=== PATIENT | female | born 1970 | race Caucasian/White ===

== ENCOUNTER 2017-05-23 16:11 | Inpatient (IN) | payer MEDICAID ==
[~2017-05-23] VITALS: Ht 175.3 cm; Wt 60.3 kg
--- NOTE | 2017-05-23 16:40 | NUR ---
MS RN NOTES ADMITTED PATIENT FROM [facility], DX SEPSIS/CELLULITIS, DR. KAMARA, AO X 3, ON RA, NOT IN ANY DISTRESS, RESPIRATION UNLABORED, C/O 5/10 PAIN TO LEFT THIGH, RT FA G 20 IVHL FLUSHES WELL SITE CLEAR. SEE NURSING FLOWSHEET FOR SKIN ISSUES. PHOTOS TAKEN. REGULAR DIET, BEDREST FOR NOW. UNIT ORIENTATION DONE AND USE OF CALL LIGHT. BED LOW LOCKED. WILL CONT TO MONITOR.
[2017-05-23] MEDS ORDERED: VANC1VIA2 IV (16:43)
[2017-05-23] MEDS ORDERED: MAGNESIUM HYDROXIDE 30 ML UDC PO PRN (17:00)
[2017-05-23] MEDS ORDERED: ACETAMINOPHEN 325 MG TABLET PO PRN (17:00)
[2017-05-23] MEDS ORDERED: Z GUARD REMEDY 2 OZ OINT TP PRN (17:00)
[2017-05-23] MEDS ORDERED: ONDANSETRON HCL/PF 4 MG/2 ML VIAL IVP PRN (17:00)
[2017-05-23] MEDS ORDERED: MORPHINE SULFATE INJ 2 MG/ML DISP.SYRIN IV PRN (17:00)
[2017-05-23] MEDS ORDERED: ZOLPIDEM TARTRATE 5 MG TABLET PO PRN (17:00)
[2017-05-23] MEDS ORDERED: MAG HYDROX/AL HYDROX/SIMETH 30 ML UDC PO PRN (17:00)
[2017-05-23] MEDS: IV NS 0.9% 1,000 ML IV PRN (17:56)
[2017-05-23] MEDS: MORPHINE SULFATE INJ 10 MG/ML DISP.SYRIN IV PRN (18:04)
[2017-05-23] MEDS: CEFTRIAXONE 1 G in IV D5W 50 ML IV SCH (18:06)
[2017-05-23 18:33] LABS: CALCIUM, SERUM 9.4 mg/dL (8.5-10.1); CREATININE 0.4 mg/dL (0.6-1.3); POTASSIUM 4.3 mmol/L (3.5-5.1)
[2017-05-23] MEDS ORDERED: FEE PK DOSING 1 MIN EA MC ONE (18:44)
--- NOTE | 2017-05-23 18:52 | NUR ---
MS RN NOTES WOUND SPECIMEN COLLECTED AND SENT TO LAB. DUE MEDS GIVEN. ALL NEEDS MET. WILL ENDORSE TO NEXT SHIFT FOR GORGE.
--- NOTE | 2017-05-23 19:00 | NUR ---
MS RN OPENING NOTES RECEIVE PT IN BED, PT A/O X 2-3, PT NO ACUTE DISTRESS NOTED. TOLERATING ROOM AIR 98% HEAD OF BED ELEVATED FOR BETTER LUNG EXPANSION AND GOOD CIRCULATION. BREATHING EVEN AND UNLABORED, SAFETY MEASURES IN PLACE, BED LOCKED AND IN LOWEST POSITION, CALL LIGHT IN REACH. WILL CONTINUE TO MONITOR.
[2017-05-23 19:59] VITALS: BP 128/71
[2017-05-23 20:00] VITALS: BP 128/71
--- NOTE | 2017-05-23 21:07 | NUR ---
PLACED A CALL TO HOSPITALIST SPOKE TO AUDIO VISUAL DIRECTOR AND RELAYED PATIENT NEEDS MIDLINE INSERTION, PER DR. FINLEY TO INSERT MIDLINE NOTED AND CARRIED OUT.
[2017-05-23] MEDS: VANCOMYCIN 0.75 GM in IV D5W 250 ML IV SCH (21:18)
[2017-05-24] MEDS: MORPHINE SULFATE INJ 10 MG/ML DISP.SYRIN IV PRN ×6 (00:49→22:10)
[2017-05-24] MEDS: VANCOMYCIN 0.75 GM in IV D5W 250 ML IV SCH ×3 (04:14→21:17)
[2017-05-24 05:18] VITALS: BP 135/81
--- NOTE | 2017-05-24 06:38 | NUR ---
MS RN CLOSING NOTES ASLEEP IN BED, COMFORTABLY . EASILY AWAKEN, HEAD OF BED ELEVATED FOR BETTER LUNG EXPANSION AND GOOD CIRCULATION, TOLERATING ROOM AIR 02 SAT 100% IN STABLE CONDITION, NOT IN RESPIRATORY DISTRESS, RESPIRATIONS EVEN AND UNLABORED, GOOD SKIN CARE PROVIDED, KEPT CLEAN AND DRY AND COMFORTABLE, AFEBRILE, NEEDS ATTENDED AND ANTICIPATED, NURSING CARE RENDERED. FREQUENT VISUAL CHECK DONE EVERY 2 HOURS. SAFETY SAFE HAZARD FREE ENVIRONMENT PROVIDED. CALL LIGHT WITHIN EASY TO REACH, ON LOW BED AT ALL TIMES TO ENSURE SAFETY, WILL ENDORSE TO THE NEXT SHIFT CONTINUE PLAN OF CARE
[2017-05-24] MEDS ORDERED: MORPHINE SULFATE INJ 4 MG/ML DISP.SYRIN ONE (06:54)
[2017-05-24 06:55] LABS: BASOPHILS # (AUTO) 0.1 /CMM (0.0-0.2); BASOPHILS % (AUTO) 0.6 % (0.0-2.0); EOSINOPHILS # (AUTO) 0.3 /CMM (0.0-0.7); EOSINOPHILS % (AUTO) 2.4 % (0.0-6.0); HEMATOCRIT 38 % (33-45); HEMOGLOBIN 12.1 g/dL (11.5-14.8); LYMPHOCYTES # (AUTO) 2.3 /CMM (0.8-4.8); LYMPHOCYTES % (AUTO) 17.8 % (20.0-44.0); MEAN CORPUSCULAR HEMOGLOBIN 23 PG (26.0-33.0); MEAN CORPUSCULAR HGB CONC 32 g/dl (31.0-36.0); MEAN CORPUSCULAR VOLUME 72 fL (82-100); MONOCYTES # (AUTO) 0.4 /CMM (0.1-1.30); MONOCYTES % (AUTO) 3.2 % (2.0-12.0); NEUTROPHILS # (AUTO) 9.8 /CMM (1.8-8.9); PLATELET COUNT (AUTO) 605 /CMM (150-450); RDW COEFFICIENT OF VARIATION 17.2 (11.5-15.0); RED BLOOD CELL COUNT(AUTO) 5.23 MIL/uL (4.0-5.2); WHITE BLOOD COUNT (AUTO) 12.9 K/uL (4.3-11.0)
[2017-05-24 07:04] LABS: ALBUMIN 3.6 g/dL (3.4-5.0); BILIRUBIN,TOTAL 0.7 mg/dL (0.2-1.0); CREATININE 0.5 mg/dL (0.6-1.3); PHOSPHORUS 3.1 mg/dL (2.5-4.9); POTASSIUM 4.2 mmol/L (3.5-5.1); TOTAL PROTEIN, SERUM 9.8 g/dL (6.4-8.2)
--- NOTE | 2017-05-24 07:30 | NUR ---
MS RN AM NOTES PT IN BED, ASLEEP, RESPONDS TO NAME AND TOUCH, AOX3, ON 2L NC, ON AND OFF, NOT IN ANY DISTRESS, BREATHING UNLABORED, NO C/O PAIN AT THIS TIME, PAIN MEDS GIVEN AWHILE AGO, RT WRIST G20 IVHL FLUSHES WELL, MATTHEW MIDLINE WITH NS AT 75 ML/HR INFUSING WELL, BOTH SITES CLEAR, SEE NURSING FLOWSHEET FOR SKIN ISSUES, L THIGH AND ABDOMINAL WOUND WITH CDI DRESSING, FOR AWAITING WOUND CONSULT,CALL LIGHT WITHIN REACH, BED LOW LOCKED, POC DISCUSSED. WILL CONTINUE TO MONITOR.
[2017-05-24 08:00] VITALS: BP 125/71
--- NOTE | 2017-05-24 09:30 | NUR ---
MS RN NOTES SEEN BY DR. KAMARA. MORPHINE SULFATE DOSE AND FREQUENCY ADJUSTED PER HIM
[2017-05-24 09:39] LABS: EOSINOPHILS % (MANUAL) 3 % (0-4); LYMPHOCYTES % (MANUAL) 19 % (16-48); MONOCYTES % (MANUAL) 2 % (0-11.0); NEUTROPHILS % (MANUAL) 76 (42-76)
--- NOTE | 2017-05-24 11:48 | NUR ---
MS RN NOTES STARTED VANCO IV.
[2017-05-24] MEDS: IV NS 0.9% 1,000 ML IV PRN (13:56)
[2017-05-24 16:00] VITALS: BP 120/69
[2017-05-24] MEDS: LACTOBACILLUS RHAMNOSUS GG 1 EACH CAP.SPRINK PO SCH (17:20)
[2017-05-24] MEDS: CEFTRIAXONE 1 G in IV D5W 50 ML IV SCH (17:21)
--- NOTE | 2017-05-24 17:21 | NUR ---
MS RN NOTES STARTED ROCEPHIN IV.
[2017-05-24 18:00] VITALS: BP 120/69
--- NOTE | 2017-05-24 18:19 | NUR ---
MS RN CLOSING NOTES PT IN BED, RESTING, AOX3, ON 2L NC, ON AND OFF, NOT IN ANY DISTRESS, BREATHING UNLABORED, NO C/O PAIN AT THIS TIME, PAIN MEDS GIVEN AWHILE AGO, RT WRIST G20 IVHL FLUSHES WELL, MATTHEW MIDLINE WITH NS AT 75 ML/HR INFUSING WELL, BOTH SITES CLEAR, L THIGH AND ABDOMINAL WOUND WITH CDI DRESSING, CLEANED AND CHANGED DRESSING EARLIER, FOR AWAITING WOUND CONSULT,CALL LIGHT WITHIN REACH, BED LOW LOCKED, ALL NEEDS MET. NO OTHER SIGNIFICANT CHANGE IN CONDITION. WILL ENDORSE TO NEXT SHIFT FOR GORGE. SEEN BY DR. NICHOLSON.
--- NOTE | 2017-05-24 19:30 | NUR ---
RN NOTE; RECEIVED PT IN BED AWAKE AND ALERT. BREATHING EVENLY. NO SOB. NAD/ SKIN WARM AND DRY. STILL W/ C/O PAIN ON BLEs. ON ONGOING IVF HYDRATION KYMBERLY WELL. CONSENT WERE OBTAINED FOR HIV TEST. NEEDS ATTENDED. WILL CONT TO MONITOR.
[2017-05-24 20:00] VITALS: BP 129/71
[2017-05-24 22:00] VITALS: BP 129/71
--- NOTE | 2017-05-24 22:10 | NUR ---
MORPHINE GIVEN ORDERED PER PT'S REQUEST FOR C/O L LEG PAIN. WILL CONT TO MONITOR.
[2017-05-25] MEDS: IV NS 0.9% 1,000 ML IV PRN ×2 (01:49→20:38)
[2017-05-25] MEDS: HYDROCODONE/APAP 5/325MG 1 EACH TABLET PO PRN (01:49)
--- NOTE | 2017-05-25 01:51 | NUR ---
NORCO GIVEN FOR C/O L THIGH PAIN. WILL CONT TO MONITOR,
[2017-05-25] MEDS: VANCOMYCIN 0.75 GM in IV D5W 250 ML IV SCH ×3 (04:33→20:31)
[2017-05-25] MEDS: MORPHINE SULFATE INJ 10 MG/ML DISP.SYRIN IV PRN ×4 (06:17→22:17)
--- NOTE | 2017-05-25 06:20 | NUR ---
MORPHINE GIVEN ORDERED PER PT'S REQUEST FOR C/O L LEG PAIN. PT WAS INSTRUCTED TO TRY TO STAY AWAY FROM THE MORPHINE AND TAKE THE NORCO TO MANAGE THE PAIN MUCH POSSIBLE. WILL CONT TO MONITOR.
--- NOTE | 2017-05-25 06:31 | NUR ---
RN NOTE; PT IN BED AWAKE AND ALERT W/ FRIEND AT THE BED SIDE. BREATHING EVENLY. NO SOB. NAD. NO ACUTE CHANGES DURING THE NIGHT. PAIN MEDICATION GIVEN ORDERED PER PT'S REQUEST. EFFECTIVE. WOUND CARE RENDERED. NEEDS ATTENDED. BED LOW LOCKED. CALL LIGHT WITHIN REACH. WILL CONT TO MONITOR AND WILL ENDORSE TO AM SHIFT FOR GORGE.
[2017-05-25 08:00] VITALS: BP 105/69
--- NOTE | 2017-05-25 08:00 | NUR ---
MS RN NOTES PATIENT IN BED RESTING NO SOB OR ACUTE DISTRESS NOTED. PATIENT ALERT, ORIENTED X4. MIDLINE INTACT PATENT. BED IN LOW LOCKED POSITION, CALL LIGHT WITHIN REACH. PATIENT DENIES ANY PAIN. WILL CONTINUE TO MONITOR.
--- NOTE | 2017-05-25 09:00 | NUR ---
MS RN NOTES PATIENT SEEN AND EVALUATED BY DR. KAMARA ORDERS NOTED AND CARRIED OUT.
[2017-05-25] MEDS: LACTOBACILLUS RHAMNOSUS GG 1 EACH CAP.SPRINK PO SCH ×2 (09:26→16:37)
[2017-05-25 09:41] LABS: CALCIUM, SERUM 9.3 mg/dL (8.5-10.1); CREATININE 0.5 mg/dL (0.6-1.3); POTASSIUM 3.9 mmol/L (3.5-5.1)
[2017-05-25 09:53] LABS: BASOPHILS # (AUTO) 0.1 /CMM (0.0-0.2); EOSINOPHILS # (AUTO) 0.5 /CMM (0.0-0.7); EOSINOPHILS % (AUTO) 4.7 % (0.0-6.0); HEMATOCRIT 35 % (33-45); HEMOGLOBIN 11.2 g/dL (11.5-14.8); LYMPHOCYTES # (AUTO) 2.9 /CMM (0.8-4.8); LYMPHOCYTES % (AUTO) 26.3 % (20.0-44.0); MEAN CORPUSCULAR HEMOGLOBIN 23 PG (26.0-33.0); MEAN CORPUSCULAR HGB CONC 32 g/dl (31.0-36.0); MEAN CORPUSCULAR VOLUME 73 fL (82-100); MONOCYTES # (AUTO) 0.7 /CMM (0.1-1.30); MONOCYTES % (AUTO) 6.5 % (2.0-12.0); NEUTROPHILS # (AUTO) 6.9 /CMM (1.8-8.9); NEUTROPHILS % (AUTO) 61.5 % (43.0-81.0); PLATELET COUNT (AUTO) 550 /CMM (150-450); RDW COEFFICIENT OF VARIATION 17.2 (11.5-15.0); RED BLOOD CELL COUNT(AUTO) 4.83 MIL/uL (4.0-5.2); WHITE BLOOD COUNT (AUTO) 11.2 K/uL (4.3-11.0)
[2017-05-25] MEDS ORDERED: HYDROGEL DRESSING 90 GM TUBE TP PRN (10:00)
--- NOTE | 2017-05-25 10:14 | NUR ---
Social service consult requested by Dr. Lee for homelessness. Pt. is a 47 year old female who was admitted to [facility] for cellulitis. SW met with pt. bedside. Pt. is alert and oriented x 4. Pt. is soft spoken and cooperative with SW during the assessment. Pt. states, she and her partner have been homeless for about six months. They live on and off with various friends. Prior to being homeless, pt. resided in [place]. Pt. has no source of income but states her mother helps her out financially. Pt. has a history of drug use but denies using drugs at this time. Pt. denies alcohol use as well. Pt. denies suicidal/homicidal ideations and visual/auditory hallucinations at this time. Pt. denies a history of psychiatric hospitalizations or illness. SW offered pt. homeless snf placement, however pt. declined stating they will probably stay at a friend's place. Pt. is willing to accept homeless resources. SW to give pt. homeless resources prior to discharge. No other social service needs are required at this time.
[2017-05-25 10:35] LABS: EOSINOPHILS % (MANUAL) 2 % (0-4); LYMPHOCYTES % (MANUAL) 8 % (16-48); MONOCYTES % (MANUAL) 10 % (0-11.0); NEUTROPHILS % (MANUAL) 80 (42-76)
[2017-05-25] MEDS: MUPIROCIN OINT 2% 22 GM TUBE TP SCH ×2 (11:18→21:19)
[2017-05-25] MEDS: HYDROGEL DRESSING 90 GM TUBE TP SCH (11:19)
[2017-05-25 16:00] VITALS: BP 108/69
--- NOTE | 2017-05-25 18:15 | NUR ---
MS RN NOTES PATIENT IN BED RESTING NO SOB OR ACUTE DISTRESS NOTED. MIDLINE ON RIGHT UPPER ARM INTACT PATENT. ALL DUE MEDICATIONS ADMINISTERED. ALL NEEDS MET. PAIN CONTROLLED WITH PAIN MEDICATION. WILL ENDORSE TO PM SHIFT GORGE.
--- NOTE | 2017-05-25 19:30 | NUR ---
RN NOTE; RECEIVED PT IN BED AWAKE AND ALERT. BREATHING EVENLY. NO SOB. NAD/ SKIN WARM AND DRY. DRESSING ON MULTIPLE WOUNDS CDI. NO W/ C/O PAIN AT THIS TIME. ON ONGOING IVF HYDRATION KYMBERLY WELL. GOOD ISOLATION PRECAUTION AND PROPER HAND WASHING OBSERVED. NEEDS ATTENDED. CALL LIGHT WITHIN REACH. WILL CONT TO MONITOR.
[2017-05-25 20:00] VITALS: BP 116/71
[2017-05-25 20:38] VITALS: BP 116/71
[2017-05-25] MEDS ORDERED: MUPIROCIN OINT 2% 22 GM TUBE SCH (21:00)
--- NOTE | 2017-05-25 22:17 | NUR ---
MORPHINE GIVEN PER PT'S REQUEST ORDERED FOR C/O GENERALIZED BODY PAIN AND THE PAIN IN HER WOUNDS ON THE L THING AND THE ABD. WILL CONT TO MONITOR
[2017-05-26] MEDS: VANCOMYCIN 0.75 GM in IV D5W 250 ML IV SCH ×3 (04:18→20:23)
--- NOTE | 2017-05-26 06:53 | NUR ---
RN NOTE; PT IN BED AWAKE AND ALERT W/ FRIEND AT THE BED SIDE. BREATHING EVENLY. NO SOB. NAD. NO ACUTE CHANGES DURING THE NIGHT. PAIN MEDICATION GIVEN ORDERED PER PT'S REQUEST. EFFECTIVE. WOUND CARE RENDERED. ISOLATION PRECAUTION OBSERVED. NEEDS ATTENDED. BED LOW LOCKED. CALL LIGHT WITHIN REACH. WILL CONT TO MONITOR AND WILL ENDORSE TO AM SHIFT FOR GORGE.
--- NOTE | 2017-05-26 07:30 | NUR ---
PT RECEIVED RESTING COMFORTABLY IN BED WITH EYES CLOSED. NO S/S OR C/O PAIN OR DISTRESS NOTED. SIDE RAILS UP X2, CALL LIGHT LEFT WITHIN REACH. WILL CONTINUE PLAN OF CARE.
[2017-05-26 08:00] VITALS: BP 112/73
[2017-05-26 08:02] LABS: CALCIUM, SERUM 8.8 mg/dL (8.5-10.1); CREATININE 0.6 mg/dL (0.6-1.3); POTASSIUM 3.5 mmol/L (3.5-5.1)
[2017-05-26] MEDS: MUPIROCIN OINT 2% 22 GM TUBE TP SCH ×2 (10:07→22:12)
[2017-05-26] MEDS: LACTOBACILLUS RHAMNOSUS GG 1 EACH CAP.SPRINK PO SCH ×2 (10:07→17:19)
[2017-05-26] MEDS: HYDROGEL DRESSING 90 GM TUBE TP SCH (10:07)
--- NOTE | 2017-05-26 11:17 | NUR ---
ADAN met with pt. bedside to give her the following resources that were discussed yesterday: List of homeless shelters, list of food resources, List of Medical hospitals, vision and dental clinics. Pt. declined correction placement. Pt. has transportation upon discharge. ADAN informed pt. to follow up with [facility] for wound care. No other social service needs are required at this time. SW is available if needed.
[2017-05-26 16:00] VITALS: BP 104/70
--- NOTE | 2017-05-26 19:27 | NUR ---
CHANGE OF SHIFT REPORT PT RESTING COMFORTABLY IN BED. NO S/S OR C/O PAIN OR DISTRESS NOTED. SIDE RAILS UP X2, CALL LIGHT LEFT WITHIN REACH. PT KEPT CLEAN, DRY, AND COMFORTABLE. NO SIGNIFICANT CHANGES FROM PREVIOUS SHIFT. REPORT GIVEN TO MICHAEL MCNULTY. RE: DC. PT STATES FRIEND IS NOT ANSWERING, CALLS ARE GOING STRAIGHT TO [employer]. PT NOTIFIED THAT IF WE ARE UNABLE TO GET IN TOUCH WITH RIDE, A TAXI WOULD BE OFFERED. Addendum: 05/26/17 at 1929 by VIRAJ RIVERA RN PT VERBALIZED UNDERSTANDING.
--- NOTE | 2017-05-26 19:30 | NUR ---
RN NOTE; RECEIVED PT IN BED AWAKE AND ALERT. BREATHING EVENLY. NO SOB. NAD. SKIN WARM AND DRY. DRESSING CDI. PT W/ AN ORDER FOR DISCHARGE FROM THE MD. PT KNOWS AND UNDERSTAND. PER PT SHE HAS BEEN TRYING TO CALL TH FRIEND TO PICK HER UP BUT SHE HAS NOT BEEN ABLE TO GET A HOLD OF HER. PT STATED SHE HAS A CAR HOWEVER THE FRIEND HAS THE KEYS. PT CURRENTLY HOMELESS, WILL WAIT FOR THE FRIEND TO CALL BACK.
[2017-05-26 20:00] VITALS: BP 112/67
[2017-05-26] MEDS: IV NS 0.9% 1,000 ML IV PRN (20:23)
[2017-05-26] MEDS: HYDROCODONE/APAP 5/325MG 1 EACH TABLET PO PRN (20:47)
--- NOTE | 2017-05-26 20:47 | NUR ---
RN NOTES PATIENT C/O OF PAIN. NORCO [phone] ADMINISTERED PRN. CONTINUE TO MONITOR.
--- NOTE | 2017-05-26 21:45 | NUR ---
SPOKE TO THE PT AGAIN REGARDING DISCHARGE AND DISPOSITION. PER HER SHE HAS NOT BEE ABLE TO TALK TO HER FRIEND. I PERSONALLY TRIED TO CALL THE NUMBER SHE GAVE ME AND NO NE ANSWERED THE PHONE.
--- NOTE | 2017-05-26 22:02 | NUR ---
SPOKE TO THE HYDRO GENERATION MANAGER, [employer] METAL PATTERNS , KETAN SPENCER, AND RECEIVED AN ORDER TO HOLD ON TO THE DISCHARGE TONIGHT SINCE THE PT HAS NO PLACE TO GO.
[2017-05-27] MEDS: VANCOMYCIN 0.75 GM in IV D5W 250 ML IV SCH (03:38)
--- NOTE | 2017-05-27 06:44 | NUR ---
RN CLOSING NOTES PATIENT IS SLEEPING IN BED. NO SOB. SKIN WARM AND DRY. VS STABLE. RESPIRATIONS EVEN AND UNLABORED. IV ACCES PATENT AND INTACT. INFUSING NS AT 75 ML/HR. NO REDNESS OR INFILTRATION NOTED. PT W/ AN ORDER FOR DISCHARGE FROM THE MD. PT KNOWS AND UNDERSTANDS. BED IN LOW POSITION. SIDE RAILSX2. CALL LIGHT WITHIN EASY REACH. WILL ENDORSE TO RN DAY SHIFT FOR CONTINUITY OF CARE.
[2017-05-27 08:00] VITALS: BP 141/79
--- NOTE | 2017-05-27 08:00 | NUR ---
RN NOTES RECEIVED PT, PT IS STABLE AND RESTING IN BED. A/OX4.NO S/S OF DISTRESS OR SOB. PT HAS C/O PAIN AT THIS TIME, WILL MANAGE WITH PHARMACOLOGICAL AND NON-PHARMACOLOGICAL INTERVENTIONS. PT IS ON RA, O2 SAT 100%. IV ACCESS LOCATED ON RIGHT UPPER ARM MIDLINE AND RIGHT WRIST 22G RUNNING NS AT 75 ML/HR. PER [facility] REPORT, PT D/C ORDER PLACED YESTERDAY ON 05/26/17. PT STATED "I HAVE NO WHERE TO GO AND ILL END UP SITTING OUTSIDE OF THE HOSPITAL UNTIL MY FRIEND PICKS ME UP". [facility] CONTACTED LABEL FOLDER HOSPITALIST FOR EXTENSION ON D/C TO TODAY 05/27/17. PT TO BE D/C TODAY BY NOON. SAFETY MEASURES IN PLACE, CALL LIGHT WITHIN REACH. WILL CONTINUE TO MONITOR.
[2017-05-27] MEDS: LACTOBACILLUS RHAMNOSUS GG 1 EACH CAP.SPRINK PO SCH (08:05)
[2017-05-27] MEDS: HYDROCODONE/APAP 5/325MG 1 EACH TABLET PO PRN (08:05)
[2017-05-27] MEDS: HYDROGEL DRESSING 90 GM TUBE TP SCH (09:00)
[2017-05-27] MEDS: MUPIROCIN OINT 2% 22 GM TUBE TP SCH (10:00)
--- NOTE | 2017-05-27 10:00 | NUR ---
RN NOTES PT REFUSED WOUND TX AT THIS TIME. HYDROGEL AND BACTROBAN REFUSED ON EMAR, WILL F/U WITH PT PRIOR TO D/C TO REQUEST FOR WOUND TX.
--- NOTE | 2017-05-27 11:56 | NUR ---
ADAN met pt. bedside along with manager case management Diana to discuss discharge plan and as to why pt. did not leave yesterday as planned. Pt. informed SW that her friend did not come to pick her up as scheduled to do so and she had nowhere else to go. Pt. stated that she will leave by noon today whether her friend picks her up or not. ADAN offered pt. taxi voucher if needed if her friend does not show up. Pt. agreed to have taxi transportation. ADAN inquired with pt. the address she needs to go to, however pt. was not able to give the address and stated she will get it. ADAN informed pt's RN Antoine that pt. will be leaving by noon with her friend or via taxi.
--- NOTE | 2017-05-27 14:20 | NUR ---
DISCHARGE NOTE PT DISCHARGED HOME. VSS, NO SOB OR DISTRESS, NO C/O PAIN AT TIME OF DISCHARGE. EXIT CARE EDUCATION PROVIDED TO PT, PT VERBALIZED UNDERSTANDING. IV ACCESS REMOVED. ALL DISCHARGE PAPERWORK AND BELONGINGS LIST SIGNED AND COPIED. PICTURES TAKEN OF WOUNDS AND PLACED IN CHART. WOUND CARE PERFORMED PRIOR TO DC. PT GIVEN PRESCRIPTION FOR CONTINUED ABX. PT LEFT IN PRIVATE CAR/TAXI.
== END 2017-05-27 14:15 | disposition home or self-care (01) | DRG 720 ==
LOC: MEDSG2 16:17
PROVIDERS: ADMIT Family Medicine; ATTEND Family Medicine
PROC: 05H533Z Insertion of Infusion Device into Right Subclavian Vein, Percutaneous Approach (ICD-10-PCS; principal; 2017-05-24)
DX: A41.9 Sepsis, unspecified organism (principal); L03.311 Cellulitis of abdominal wall; K75.9 Inflammatory liver disease, unspecified; L03.116 Cellulitis of left lower limb; F17.210 Nicotine dependence, cigarettes, uncomplicated; F11.11 Opioid abuse, in remission; R76.0 Raised antibody titer; S81.801A Unspecified open wound, right lower leg, initial encounter; X58.XXXA Exposure to other specified factors, initial encounter; Y92.9 Unspecified place or not applicable
CPT/HCPCS: 36415; 36569; 80048-TC; 80053-TC; 80074; 80202-TC; 83735-TC; 84100-TC; 85025-TC; 87070-TC; 87081-TC; A6248; A6253; A6402; J0696; J2270; J3370; J7030; J7060; Z7610